=== PATIENT | female | born 1975 | race Caucasian/White ===

== ENCOUNTER 2016-08-16 17:13 | Emergency (ER) | payer MEDICAID ==
[~2016-08-16 17:13] MED LIST: ATIVAN 1 MG1 MG PO; CIPRO500 MG PO; EFFEXOR XR150 MG PO; FLORASTOR250 MG PO; MOTRIN600 MG PO; NUVIGIL150 MG PO; TYLENOL325 MG PO
== END 2016-08-16 17:45 | disposition disaster alternative care site (69) ==
LOC: GMED 17:13
DX: Z53.21 Procedure and treatment not carried out due to patient leaving prior to being seen by health care provider (principal)

== ENCOUNTER 2016-08-16 19:13 | Emergency (ER) | payer MEDICAID ==
--- NOTE | ~2016-08-16 | ER ---
PATIENT'S NAME: KURTIS SALCEDO [facility] AGE: 41 Y [address] ROOM: [place] [address] LOCATION: ED ADMIT DATE: 08/16/2016 ER/Outpatient Report DISCHARGE DATE: 08/16/2016 FAMILY PHYSICIAN: Marquez Ray MD ATTENDING PHYSICIAN: Delroy Palomino Time of Arrival: 1913 hours. Time of Evaluation: 1925 hours. CHIEF COMPLAINT: Abdominal pain, . HISTORY OF PRESENT ILLNESS: This is a 41-year-old female, who presents to the ER. She states that she is approximately 8 weeks' . She states she has not seen a provider for this yet. She states since Saturday she has had some lower abdominal pain and cramping. She states she has also had some urinary urgency, frequency, and pain with urination. She states she has had lots of nausea with this , and she has vomited from it a couple of times. She has had no diarrhea, no constipation. She states her pain does radiate into her right flank as well. She has had no vaginal bleeding. No vaginal discharge. No leakage of fluids. ALLERGIES: NO KNOWN ALLERGIES. MEDICATIONS: Please see medication list in nurse's notes. PAST MEDICAL HISTORY: Anxiety and depression. PAST SURGERIES: None. SOCIAL HISTORY: Denies smoking, drug, or alcohol use. REVIEW OF SYSTEMS: A 10-point review of systems completely was negative with the exception of those discussed in the HPI. PHYSICAL EXAMINATION: VITAL SIGNS: Height 5 feet 6 inches stated, weight 74.8 kg taken, blood pressure is 128/71, pulse 86, respirations 16, temperature 99 degrees PATIENT'S NAME: KRUTIS SALCEDO [facility] AGE: 41 Y [address] ROOM: [place] [address] LOCATION: ED ADMIT DATE: 08/16/2016 ER/Outpatient Report DISCHARGE DATE: 08/16/2016 FAMILY PHYSICIAN: Marquez Ray MD ATTENDING PHYSICIAN: Delroy Palomino tympanically, saturations 99% on room air. [place] Coma Score is 15. GENERAL: Alert, calm, well-developed female, in no obvious distress. HEENT: Head: Normocephalic. Eyes: Pupils are equal and reactive to light. She does display moist mucous membranes. LUNGS: Clear to auscultation bilaterally. No wheezes or crackles. Normal respiratory effort. HEART: Regular rate and rhythm. No lifts, thrills, or murmurs. ABDOMEN: Soft. She has mild tenderness in her suprapubic area with palpation. She has good bowel sounds throughout. No masses are palpated. SKIN: Warm, dry, and intact. LABORATORY AND X-RAYS: CBC: White count is 11.1, hemoglobin is 12.8, platelets 314, [place] [address].0. Urinalysis, UA micro: White blood cells full field, red blood cells 5-10, epithelial full field, bacteria moderate. Ultrasound was done of the right kidney and a vaginal ultrasound was done. There is a sac inside the uterus. The kidney looked fine. No heart rate was seen. IMPRESSION: 1. Urinary tract infection. 2. Threatened . ASSESSMENT AND PLAN: We did start her on an IV here in the emergency room. We did give her some IV fluids and 4 mg of Zofran and 2 mg of morphine. She also received 1 g of Rocephin IV. We will dismiss the patient home with a prescription for Macrodantin to use as directed. She needs to continue to push fluids, take Tylenol as needed for pain, and I would like her to follow up with her primary care physician in 2 days for a repeat HCG and recheck. The patient understands and agrees with care. MYRA VEGAS PA-C FOR MD ZULLY MORALES/miguel /[id number] d: t: 08/25/16 1311, OUTPATIENT REPORT
[2016-08-16 19:54] LABS: BILIRUBIN URINE NEGATIVE (NEGATIVE); BLOOD URINE 150 /UL (NEGATIVE); COLOR URINE YELLOW (YELLOW); GLUCOSE URINE NEGATIVE (NEGATIVE); KETONE URINE 5 mg/dL (NEGATIVE); LEUKOCYTES URINE 500 /UL (NEGATIVE); NITRITE URINE NEGATIVE (NEGATIVE); PROTEIN URINE 30 mg/dL (NEGATIVE); SPEC GRAVITY URINE 1.025 (1.003-1.035); TURBIDITY URINE 3+ (CLEAR); UROBILINOGEN URINE NORMAL (NORMAL)
[2016-08-16 20:02] LABS: WBC URINE FULL FIELD #/HPF (NEGATIVE)
[2016-08-16 20:03] LABS: AMORPHOUS URINE 1+ (NEGATIVE); BACTERIA URINE MODERATE (NEGATIVE); EPITHELIAL URINE FULL FIELD #/HPF (NEGATIVE); MUCUS URINE 1+ (NEGATIVE)
[2016-08-16 20:06] LABS: BASOPHIL # 0.1 K/uL (0.0-0.2); BASOPHIL % 0.4 %; EOSINOPHIL # 0.1 K/uL (0.0-0.5); EOSINOPHIL % 0.6 %; HEMATOCRIT 39.4 % (33.0-46.0); HEMOGLOBIN 12.8 g/dL (10.0-15.0); IMMATURE GRANULOCYTE # 0.1 K/uL (0.0-0.3); IMMATURE GRANULOCYTE % 0.4 %; LYMPHOCYTE # 1.3 K/uL (0.8-4.0); MCH 28.7 pg (27.0-34.0); MCHC 32.5 gm/dL (32.0-36.5); MCV 88.3 fl (83.0-98.0); MONOCYTE # 1.1 K/uL (0.0-1.0); MONOCYTE % 9.9 %; MPV 8.8 fl (9.4-12.4); NEUTROPHIL # (ANC) 8.5 K/uL (1.8-7.8); NEUTROPHIL % 76.7 %; NRBC % 0 /100WBC (0-0.00); PLATELET COUNT 314 K/uL (150-450); RBC 4.46 M/uL (3.50-5.50); RDW-CV 12.1 % (11.9-14.6); WBC 11.1 K/uL (4.0-11.0)
== END 2016-08-16 22:22 | disposition disaster alternative care site (69) ==
LOC: GMED 19:13
PROVIDERS: Emergency Medicine
DX: O23.41 Unspecified infection of urinary tract in pregnancy, first trimester (principal); O20.0 Threatened abortion; Z3A.08 8 weeks gestation of pregnancy
CPT/HCPCS: J0696; J2270; J2405; J7030

== ENCOUNTER 2016-08-19 17:04 | Emergency (ER) | payer MEDICAID ==
--- NOTE | ~2016-08-19 | ER ---
PATIENT'S NAME: KURTIS SALCEDO [facility] AGE: 41 Y [address] ROOM: [place] [address] LOCATION: [facility] ADMIT DATE: 08/19/2016 ER/Outpatient Report DISCHARGE DATE: 08/19/2016 FAMILY PHYSICIAN: Marquez Ray MD ATTENDING PHYSICIAN: Pilar Stephen SEEN AT: 1720 hours. CHIEF COMPLAINT: Hand laceration. HISTORY OF PRESENT ILLNESS: The patient accidentally stabbed herself with a steak knife in the left hand. This occurred just prior to her arrival in the emergency room. She has a flap type laceration midway between the second MP joint and the thenar eminence of her thumb on the left hand. There is no active bleeding. The patient is not willing to straighten her thumb or her second finger and she complains of a great deal of pain when this is done passively. Capillary refill to both fingers is brisk. She has sensation to light touch throughout both fingers. She will not flex or extend with or without resistance either her thumb or her index finger. PAST MEDICAL HISTORY: No known allergies. HOME MEDICATIONS: Unknown at this time. The patient was seen in the emergency room 3 days ago for complaints of abdominal pain. She is currently however is awaiting for hCG results to determine if the is viable. She was also diagnosed with urinary tract infection and given Rocephin IV. She was then to fill Macrodantin as she has not yet done that. REVIEW OF SYSTEMS: CONSTITUTIONAL: The patient states her urinary symptoms have resolved and she has not had any fever, chills, or sweats. HEENT: No complaints. CARDIOVASCULAR/RESPIRATORY: No complaints. GI/: No complaints other than what has previously been mentioned regarding urinary tract infection and current . NEURO: No complaints. MUSCULOSKELETAL: As previously described regarding her left hand. HEMATOLOGY: She has no bleeding disorders. SKIN: Laceration as mentioned. PATIENT'S NAME: KURTIS SALCEDO [facility] AGE: 41 Y [address] ROOM: [place], [place] [address] LOCATION: [facility] ADMIT DATE: 08/19/2016 ER/Outpatient Report DISCHARGE DATE: 08/19/2016 FAMILY PHYSICIAN: Marquez Ray MD ATTENDING PHYSICIAN: Pilar Stephen PHYSICAL EXAMINATION: VITAL SIGNS: Pulse is 90, respirations are 18, temperature not obtained, blood pressure 135/90, and oxygen saturation 100% on room air. GENERAL APPEARANCE: The patient is alert, oriented, pink, warm, and dry. Quite verbose. HEENT: Head is normocephalic. Eyes, ears, nose, and throat are not examined. NECK: Supple. No lymphadenopathy. LUNGS: Clear to anterior-posterior auscultation. HEART: Rate is regular. Normal S1, S2. EXTREMITIES: Exam was limited to the left hand. She has a 1.5 cm flap laceration midway between the MP joint of her 2nd finger and the thenar eminence of her left thumb on the left hand. There is no active bleeding. Hematoma can be palpated surrounding this however causes great deal of pain. I am unable to ascertain whether or not her tendons are intact due to the patient's being uncooperative with the exam. NEURO: Cranial nerves 2 through 12 are grossly intact. LABORATORY DATA: X-ray of the left hand was obtained and there is no bony trauma noted. IMPRESSION/ASSESSMENT: Laceration, left hand, possible tendon injury. EMERGENCY DEPARTMENT COURSE: The wound was cleansed thoroughly and dressed. We did have ice applied in the interim. DISPOSITION PLAN: The patient is to start Keflex, she is start this tonight as this will cover her urinary tract infection as well as cover for potential infection in the left hand wound and she is to follow up with [facility] in the morning. She did see Dr. Joy approximately a year ago for another hand injury. She agrees to this plan of care and she is to keep her wound clean and dry tonight. CHIDI QUINTANA APRN FOR PILAR STEPHEN MD DP/modl /[id number] d: 08/20/16 0131 t: 09/11/16 1507, OUTPATIENT REPORT
== END 2016-08-19 18:23 | disposition disaster alternative care site (69) ==
LOC: GACC 17:04
DX: O9A.219 Injury, poisoning and certain other consequences of external causes complicating pregnancy, unspecified trimester (principal); S61.412A Laceration without foreign body of left hand, initial encounter; W26.0XXA Contact with knife, initial encounter

== ENCOUNTER 2016-09-19 08:12 | Emergency (ER) | payer MEDICAID ==
--- NOTE | ~2016-09-19 | ER ---
PATIENT'S NAME: KURTIS SALCEDO [facility] AGE: 41 Y [address] ROOM: [place] [address] LOCATION: [facility] ADMIT DATE: 09/19/2016 ER/Outpatient Report DISCHARGE DATE: 09/19/2016 FAMILY PHYSICIAN: Marquez Ray MD ATTENDING PHYSICIAN: Pilar Campbell HISTORY OF PRESENT ILLNESS: The patient is a 41-year-old female who presented to the emergency room with abdominal cramping and thinking she was having a miscarriage. She states she was seen about 5 weeks ago in the ER and was told that she was likely 6 weeks at that time, but her serum quant was "not right." She started having some spotting last week, and last night, she started having a little bit more bleeding. States that she got up around 3 a.m. and thought she "passed some tissue," and then went back to bed. States that she got up again and felt it all "come out again" and started having really bad abdominal cramping that was not going away. She did not try any medications at home to help with this. She denies any fevers, chills, nausea, or vomiting. She denies any urinary symptoms, any leg swelling, or any headache or vision change. PAST MEDICAL HISTORY: The patient is a G5, P2, and has had 2 previous vaginal deliveries, uncomplicated, and 2 previous abortions prior to the vaginal deliveries. This is her first miscarriage. The patient does have a history of anxiety and ADHD, and she has had surgery on her neck previously. SOCIAL HISTORY: Past medical history of illicit drug use, but not currently. The patient denies any smoking and denies any alcohol use since she has been . ALLERGIES: THE PATIENT HAS NO KNOWN MEDICAL ALLERGIES. MEDICATIONS: She is not currently taking any medications. REVIEW OF SYSTEMS: A complete and comprehensive review of systems was completed and is negative except as noted in the HPI above. PHYSICAL EXAMINATION: VITAL SIGNS: Weight 72.3 kg, blood pressure 113/64, pulse 80, respiratory rate 20, temperature 98.4 TM, and O2 of 98% on room air. GENERAL: The patient is in mild distress, appears in pain. Her airway, breathing, and circulation are intact. PATIENT'S NAME: KURTIS SALCEDO [facility] AGE: 41 Y [address] ROOM: [place], [place] [address] LOCATION: [facility] ADMIT DATE: 09/19/2016 ER/Outpatient Report DISCHARGE DATE: 09/19/2016 FAMILY PHYSICIAN: Marquez Ray MD ATTENDING PHYSICIAN: Pilar Campbell CHEST: Clear to auscultation bilaterally. CARDIOVASCULAR: Regular rate and rhythm. No murmurs, rubs, or gallops. EXTREMITIES: Nontender. She has normal range of motion and no pedal edema. SKIN: Warm, dry, and intact. She is independent in her ADLs. ABDOMEN: Soft. Tender to palpation, greatest suprapubic. Unable to palpate full uterus, but appears the uterus is below the umbilicus. VAGINAL: There were clots in the vaginal vault upon first inspection that were removed, and then products were seen in the cervical os. Ringed forceps were used to extract the products of conception. Products of conception appeared to be placental tissue. Fundal pressure was applied, and bleeding was controlled/stopped at the end of the exam. The patient tolerated the procedure well. LABORATORY DATA: Serum quant was 1281. Her hemoglobin was 11.5, and her white blood cell count was 8.4. Platelets were 318. Her blood type was A positive, so no need for RhoGAM. Transvaginal ultrasound was performed, and no retained products of conception were seen. IMPRESSION: Complete miscarriage. EMERGENCY DEPARTMENT COURSE: The patient underwent the removal of the products of conception with ringed forceps and tolerated the procedure well. She did not receive any medications. No IV fluids. All of her symptoms of abdominal pain and bleeding resolved after the removal of the products of conception. Pathology was sent on the tissue and is still pending. The patient was instructed to follow up with her primary care physician in 3 to 5 days to follow up quant levels to 0. She was instructed to use Tylenol or ibuprofen for any abdominal pain. She can use a little heat. Take it easy and do pelvic rest for the next 4 to 6 weeks. Recommended the patient continue any vitamin, and precautions were given if the patient experiences bleeding of more than a pad an hour or she notices any fevers, chills, severe abdominal pain, vaginal discharge, or odor, that she should seek medical attention right away for evaluation. The patient was discharged in good condition. KULWANT OLIVER, RESIDENT FOR MD NORBERTO JOHNSON/agusl PATIENT'S NAME: KURTIS SALCEDO [facility] AGE: 41 Y [address] ROOM: [place] [address] LOCATION: [facility] ADMIT DATE: 09/19/2016 ER/Outpatient Report DISCHARGE DATE: 09/19/2016 FAMILY PHYSICIAN: Marquez Ray MD ATTENDING PHYSICIAN: Pilar Campbell /[id number] d: 09/19/161419 t: 09/21/16 194, OUTPATIENT REPORT
--- NOTE | ~2016-09-19 | ER ---
PATIENT'S NAME: KURTIS SALCEDO [facility] AGE: 41 Y [address] ROOM: [place] [address] LOCATION: ED ADMIT DATE: 09/19/2016 ER/Outpatient Report DISCHARGE DATE: 09/19/2016 FAMILY PHYSICIAN: Marquez Ray MD ATTENDING PHYSICIAN: Ed Stephen TIME OF ARRIVAL: 0812 hours. TIME SEEN: By Dr. Cortes, third-year resident, is 0820 hours. IDENTIFICATION: A 41-year-old female. CHIEF COMPLAINT: Possible miscarriage. HISTORY OF PRESENT ILLNESS: I saw and evaluated the patient, discussed with resident, and agree with the resident's findings and plan as documented in the resident's note. ED STEPHEN MD CAR/modl /[id number] d: 09/19/16 1344 t: 09/21/16 194, OUTPATIENT REPORT
[2016-09-19 09:22] LABS: BASOPHIL % 0.5 %; EOSINOPHIL # 0.1 K/uL (0.0-0.5); EOSINOPHIL % 1.7 %; HEMATOCRIT 34.7 % (33.0-46.0); HEMOGLOBIN 11.5 g/dL (10.0-15.0); IMMATURE GRANULOCYTE % 0.4 %; LYMPHOCYTE # 1.5 K/uL (0.8-4.0); LYMPHOCYTE % 17.2 %; MCH 28.5 pg (27.0-34.0); MCHC 33.1 gm/dL (32.0-36.5); MCV 85.9 fl (83.0-98.0); MONOCYTE # 0.6 K/uL (0.0-1.0); MONOCYTE % 6.5 %; MPV 8.9 fl (9.4-12.4); NEUTROPHIL # (ANC) 6.2 K/uL (1.8-7.8); NEUTROPHIL % 73.7 %; NRBC % 0 /100WBC (0-0.00); PLATELET COUNT 318 K/uL (150-450); RBC 4.04 M/uL (3.50-5.50); RDW-CV 12.6 % (11.9-14.6); WBC 8.4 K/uL (4.0-11.0)
== END 2016-09-19 10:26 | disposition disaster alternative care site (69) ==
LOC: GMED 08:12
PROVIDERS: Family Medicine
DX: O03.9 Complete or unspecified spontaneous abortion without complication (principal); Z98.890 Other specified postprocedural states